=== PATIENT | male | born 1965 | race Caucasian/White ===

== ENCOUNTER 2017-05-24 07:59 | Emergency (ER) | END 2017-05-24 11:04 | disposition home or self-care (01) ==

== ENCOUNTER 2018-10-09 12:12 | Emergency (ER) | payer MEDICAID, OTHER ==
[~2018-10-09] VITALS: Ht 162.6 cm; Wt 71.2 kg
[~2018-10-09 12:12] MED LIST: AMOX500C2 PO; GLYB2.5T2 PO; IBUP-1542 PO; LANT3I SC; LISI10TA2 PO; METF850T13 PO; SIMV20TA2 PO
[2018-10-09 12:17] VITALS: BP 136/88; PULSE 104; RESP 17; Ht 162.6 cm; Wt 71.2 kg
[2018-10-09] MEDS ORDERED: KETOROLAC 60 MG INJ IM STA (13:49)
[2018-10-09] MEDS ORDERED: MED4DP PO (14:53)
[2018-10-09] MEDS ORDERED: NAPR-985 PO (14:53)
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
== END 2018-10-09 15:06 | disposition home or self-care (01) ==
LOC: FTE 12:12
DX: M79.604 Pain in right leg (principal); I10 Essential (primary) hypertension; E11.9 Type 2 diabetes mellitus without complications; Z79.4 Long term (current) use of insulin
CPT/HCPCS: 93971; 96372; J1885; Z7502